=== PATIENT | female | born 1970 | race Two or more races ===

== ENCOUNTER 2020-09-16 19:09 | Inpatient (IN) | payer MEDICAID, OTHER ==
[~2020-09-16] VITALS: Ht 157.5 cm; Wt 46.4 kg
[2020-09-16] MEDS ORDERED: SODIUM CHLORIDE 0.9% 1,000 ML IV ONE (19:30)
[2020-09-16] MEDS ORDERED: cefTRIAXone 1GM/50ML D5W 50 ML IV ONE (19:45)
[2020-09-16] MEDS ORDERED: VANCOMYCIN PER PHARMACY 0 MG IV SCH (20:00)
[2020-09-16 20:18] LABS: Basophils # (auto) 0 10 ^3/uL (0-0.2); Eosinophils # (auto) 0.1 10 ^3/uL (0-0.8); Lymphocytes # (auto) 0.5 10 ^3/uL (0.4-5.4); Monocytes # (auto) 0.5 10 ^3/uL (0-1.3)
[2020-09-16 20:20] LABS: Basophils % (auto) 0.5 % (0.0-2.0); Eosinophils % (auto) 0.5 % (0.0-7.0); Hematocrit 24.5 % (36.0-46.0); Hemoglobin 7.9 g/dL (12.2-16.2); Lymphocytes % (auto) 4.9 % (10.0-50.0); Mean Corpuscular Hemoglobin 26.6 pg (28.0-32.0); Mean Corpuscular Hgb Conc. 32.1 g/dL (32.0-36.0); Mean Corpuscular Volume 82.9 fL (80.0-100.0); Monocytes % (auto) 5.7 % (0.0-12.0); Neutrophils # (auto) 8.5 10 ^3/uL (1.6-8.6); Neutrophils % (auto) 88.4 % (37.0-80.0); Platelet Count (auto) 522 10^3/uL (140-450); Red Blood Cells 2.95 10^6/uL (4.0-5.20); White Blood Cell 9.6 10^3/uL (4.4-10.8)
[2020-09-16 20:35] LABS: Albumin 2.1 g/dL (3.4-5.0); Anion Gap 7 (5-15); Blood Urea Nitrogen 21 mg/dL (7-18); Calcium 10.1 mg/dL (8.5-10.1); Carbon Dioxide 28 mmol/L (21-32); Chloride 107 mmol/L (98-107); Glucose 128 mg/dL (74-106); Sodium 142 mmol/L (136-145)
[2020-09-16 20:41] LABS: Alanine Aminotransferase 6 U/L (13-56); Alkaline Phosphatase 88 U/L (45-117); Aspartate Aminotransferase 29 U/L (15-37); BUN/Creatinine Ratio 47.7; Bilirubin, Total 0.6 mg/dL (0.2-1.0); GFR African American 194 mL/min; GFR Non-African American 160 mL/min; Total Protein 6.9 g/dL (6.4-8.2)
[2020-09-16 20:43] LABS: Potassium 2.9 mmol/L (3.5-5.1)
[2020-09-16] MEDS ORDERED: ONDANSETRON HCL 4 MG/2 ML VIAL IV ONE (20:45)
[2020-09-16] MEDS ORDERED: MORPHINE SULFATE 4 MG/ML SYR/VIAL IV ONE (20:45)
[2020-09-16] MEDS ORDERED: POTASSIUM CHL 20MEQ/100ML 100 ML IV ONE (21:00)
[2020-09-16 21:20] LABS: INR 1.24 (0.9-1.15); Partial Thromboplastin Time 26.8 sec (23.0-31.2)
[2020-09-16 21:31] LABS: Urine Amorphous Crystal FEW /hpf (None Seen); Urine Bacteria NONE SEEN /hpf (None Seen); Urine Blood Negative /uL (Negative); Urine Hyaline Cast MOD /lpf (0 - 2); Urine Mucus FEW (None Seen); Urine WBC 7 /hpf (0 - 5)
[2020-09-16] MEDS ORDERED: VANCOMYCIN 1GM/250ML 250 ML IV SCH (22:00)
[2020-09-16] MEDS: VANCOMYCIN 1GM/250ML 250 ML IV SCH (22:00)
[2020-09-16] MEDS ORDERED: IOHEXOL 350 MG/ML 100ML IJ ONE (23:42)
[2020-09-16] MEDS ORDERED: MORPHINE SULF INJ 2 MG/ML SYRINGE 1ML IV PRN (23:45)
[2020-09-16] MEDS ORDERED: NITROGLYCERIN 0.4 MG SL TAB SL PRN (23:45)
[2020-09-17] MEDS ORDERED: PIPERACILLIN-TAZOB 3.375GM 100 ML IV SCH
[2020-09-17] MEDS ORDERED: ACETAMINOPHEN 500 MG TAB PO PRN (00:30)
[2020-09-17] MEDS: SODIUM CHLORIDE 0.9% 1,000 ML IV SCH ×4 (00:30→21:29)
[2020-09-17] MEDS: MORPHINE SULF INJ 2 MG/ML SYRINGE 1ML IV PRN ×4 (01:03→12:50)
[2020-09-17] MEDS: OXYCODONE W/ ACETAMINOPHEN 5/325MG TABLET PO PRN (03:30)
[2020-09-17] MEDS: ONDANSETRON HCL 4 MG/2 ML VIAL IV PRN ×3 (04:30→18:16)
[2020-09-17] MEDS: MORPHINE SULF 15mg ER tab PO SCH ×3 (06:46→21:29)
[2020-09-17 07:11] LABS: Eosinophils # (auto) 0 10 ^3/uL (0-0.8); Hemoglobin 8.1 g/dL (12.2-16.2); Lymphocytes # (auto) 0.5 10 ^3/uL (0.4-5.4); Monocytes # (auto) 0.6 10 ^3/uL (0-1.3)
[2020-09-17 07:13] LABS: Basophils # (auto) 0 10 ^3/uL (0-0.2); Basophils % (auto) 0.2 % (0.0-2.0); Eosinophils % (auto) 0.2 % (0.0-7.0); Hematocrit 25.5 % (36.0-46.0); Lymphocytes % (auto) 5.4 % (10.0-50.0); Mean Corpuscular Hemoglobin 26.6 pg (28.0-32.0); Mean Corpuscular Hgb Conc. 31.8 g/dL (32.0-36.0); Mean Corpuscular Volume 83.8 fL (80.0-100.0); Monocytes % (auto) 5.9 % (0.0-12.0); Neutrophils # (auto) 8.8 10 ^3/uL (1.6-8.6); Neutrophils % (auto) 88.3 % (37.0-80.0); Nucleated Red Blood Cells % 0.1 %; Platelet Count (auto) 452 10^3/uL (140-450); Red Blood Cells 3.05 10^6/uL (4.0-5.20); Red Cell Distribution Width 19.6 % (11.8-14.3); White Blood Cell 9.9 10^3/uL (4.4-10.8)
[2020-09-17 07:34] LABS: Albumin 2.2 g/dL (3.4-5.0); Anion Gap 5 (5-15); Blood Urea Nitrogen 20 mg/dL (7-18); Calcium 10.3 mg/dL (8.5-10.1); Carbon Dioxide 30 mmol/L (21-32); Chloride 106 mmol/L (98-107); Glucose 137 mg/dL (74-106); Potassium 3.5 mmol/L (3.5-5.1); Sodium 141 mmol/L (136-145)
[2020-09-17 07:37] LABS: Alanine Aminotransferase < 6 U/L (13-56); Alkaline Phosphatase 87 U/L (45-117); Aspartate Aminotransferase 32 U/L (15-37); Bilirubin, Total 0.5 mg/dL (0.2-1.0); GFR African American 167 mL/min; GFR Non-African American 138 mL/min
[2020-09-17] MEDS: ENOXAPARIN SOD 40 MG/0.4 ML SYRINGE SC SCH ×2 (09:37→21:29)
[2020-09-17] MEDS: FAMOTIDINE 20 MG TAB PO SCH ×2 (09:37→21:29)
[2020-09-17] MEDS: VANCOMYCIN 1GM/250ML 250 ML IV SCH ×2 (09:37→21:28)
[2020-09-17 16:55] VITALS: BP 111/71
[2020-09-17] MEDS ORDERED: MORPHINE SULF INJ 2 MG/ML SYRINGE 1ML IV ONE (18:15)
[2020-09-17] MEDS: MORPHINE SULFATE 4 MG/ML SYR/VIAL IV PRN (18:16)
[2020-09-17 22:00] VITALS: BP 119/67
[2020-09-18] VITALS (12 sets, daily range): BP systolic 115–127; BP diastolic 58–72
[2020-09-18] MEDS: MORPHINE SULFATE 4 MG/ML SYR/VIAL IV PRN ×3 (01:04→18:06)
[2020-09-18 05:32] LABS: Basophils # (auto) 0 10 ^3/uL (0-0.2); Eosinophils # (auto) 0.1 10 ^3/uL (0-0.8); Eosinophils % (auto) 0.8 % (0.0-7.0); Lymphocytes # (auto) 0.5 10 ^3/uL (0.4-5.4); White Blood Cell 10.6 10^3/uL (4.4-10.8)
[2020-09-18] MEDS: MORPHINE SULF 15mg ER tab PO SCH ×3 (05:32→22:00)
[2020-09-18 05:35] LABS: Basophils % (auto) 0.3 % (0.0-2.0); Hematocrit 20.6 % (36.0-46.0); Lymphocytes % (auto) 4.5 % (10.0-50.0); Mean Corpuscular Hemoglobin 27.1 pg (28.0-32.0); Mean Corpuscular Hgb Conc. 32.5 g/dL (32.0-36.0); Mean Corpuscular Volume 83.5 fL (80.0-100.0); Monocytes # (auto) 0.6 10 ^3/uL (0-1.3); Monocytes % (auto) 5.8 % (0.0-12.0); Neutrophils # (auto) 9.4 10 ^3/uL (1.6-8.6); Neutrophils % (auto) 88.6 % (37.0-80.0); Platelet Count (auto) 425 10^3/uL (140-450); Red Blood Cells 2.46 10^6/uL (4.0-5.20); Red Cell Distribution Width 18.7 % (11.8-14.3)
[2020-09-18 05:58] LABS: Hemoglobin 6.7 g/dL (12.2-16.2)
[2020-09-18] MEDS: SODIUM CHLORIDE 0.9% 1,000 ML IV SCH ×2 (08:30→16:30)
[2020-09-18] MEDS: OXYCODONE W/ ACETAMINOPHEN 5/325MG TABLET PO PRN ×2 (08:55→20:45)
[2020-09-18] MEDS: ENOXAPARIN SOD 40 MG/0.4 ML SYRINGE SC SCH ×2 (08:55→22:00)
[2020-09-18] MEDS: FAMOTIDINE 20 MG TAB PO SCH ×2 (08:56→22:00)
[2020-09-18] MEDS: VANCOMYCIN 1GM/250ML 250 ML IV SCH (08:56)
[2020-09-18] MEDS ORDERED: GADOTERATE MEG 10 MMOL/20ml INJ (0.5MMOL/ml) IV ONE (12:15)
[2020-09-18] MEDS ORDERED: levoFLOXacin 500MG 100 ML IV ONE (13:00)
[2020-09-18] MEDS: VANCOMYCIN 750mg/250ml 250 ML IV SCH (22:00)
[2020-09-19] VITALS (7 sets, daily range): BP systolic 114–129; BP diastolic 61–70
[2020-09-19] MEDS: SODIUM CHLORIDE 0.9% 1,000 ML IV SCH ×2 (00:30→08:59)
[2020-09-19] MEDS: MORPHINE SULFATE 4 MG/ML SYR/VIAL IV PRN ×3 (01:04→19:34)
[2020-09-19] MEDS: MORPHINE SULF 15mg ER tab PO SCH ×2 (05:37→15:12)
[2020-09-19] MEDS: OXYCODONE W/ ACETAMINOPHEN 5/325MG TABLET PO PRN (09:19)
[2020-09-19] MEDS: ENOXAPARIN SOD 40 MG/0.4 ML SYRINGE SC SCH (09:19)
[2020-09-19] MEDS: FAMOTIDINE 20 MG TAB PO SCH (09:19)
[2020-09-19 09:56] LABS: Hematocrit 31.5 % (36.0-46.0); Hemoglobin 10.7 g/dL (12.2-16.2)
[2020-09-19] MEDS ORDERED: levoFLOXacin 500MG 100 ML IV SCH (10:00)
[2020-09-19] MEDS: VANCOMYCIN 750mg/250ml 250 ML IV SCH (10:00)
== END 2020-09-19 20:10 | disposition hospice, home (50) | DRG 861 ==
LOC: ER 19:09 → EDBD 19:09 → TELE 19:10 → TELE-CENTR 09-17 16:10
PROVIDERS: ADMIT Hospitalist; ATTEND Hospitalist
PROC: 30233N1 Transfusion of Nonautologous Red Blood Cells into Peripheral Vein, Percutaneous Approach (ICD-10-PCS; principal; 2020-09-18)
DX: G89.3 Neoplasm related pain (acute) (chronic) (principal); C50.912 Malignant neoplasm of unspecified site of left female breast; C78.00 Secondary malignant neoplasm of unspecified lung; J96.01 Acute respiratory failure with hypoxia; E43 Unspecified severe protein-calorie malnutrition; J18.9 Pneumonia, unspecified organism; E87.6 Hypokalemia; E86.0 Dehydration; D64.9 Anemia, unspecified; R62.7 Adult failure to thrive; J98.19 Other pulmonary collapse; C79.51 Secondary malignant neoplasm of bone; Z88.0 Allergy status to penicillin; E11.9 Type 2 diabetes mellitus without complications; E27.8 Other specified disorders of adrenal gland; I31.3 Pericardial effusion (noninflammatory); K59.00 Constipation, unspecified; Z20.822 Contact with and (suspected) exposure to COVID-19; R64 Cachexia; Z68.1 Body mass index [BMI] 19.9 or less, adult; Z86.73 Personal history of transient ischemic attack (TIA), and cerebral infarction without residual deficits
CPT/HCPCS: 36415; 36600; 70450; 71045; 71275; 74176; 80053; 80202; 81001; 82553; 82565; 82728; 82805; 83605; 83880; 84484; 85014; 85018; 85025; 85379; 85384; 85610; 85730; 86850; 86900; 86901; 86920; 87040; 87086; 87426; 92610; 93005; 93970; 96365; 96366; 96375; 96376; G0378; J0696; J1956; J2405; J3480